=== PATIENT | female | born 1960 | race Caucasian/White ===

== ENCOUNTER 2020-11-12 07:46 | Inpatient (IN) | payer MEDICAID ==
[~2020-11-12] VITALS: Ht 157.5 cm; Wt 93.9 kg
[2020-11-12 09:34] LABS: HEMATOCRIT. 40.3 % (36.0-48.0); HEMOGLOBIN. 13.7 g/dL (12.0-16.0); MEAN CORPUSCULAR HEMOGLOBIN 30.3 pg (28.0-32.0); MEAN CORPUSCULAR VOLUME 89.3 fL (81.0-99.0); RED BLOOD CELL COUNT 4.51 mill/uL (4.2-5.4); RED CELL DISTRIBUTION WIDTH 13.5 % (11.6-14.6)
[2020-11-12 09:36] LABS: CHLORIDE 99 mEq/L (98-107)
[2020-11-12 09:43] LABS: D-DIMER 0.87 mg/L FEU (<0.50); INR 0.9; PROTHROMBIN TIME 9.9 sec (9.6-11.0)
[2020-11-12 09:44] LABS: CREATINE KINASE 375 IU/L (26-192)
[2020-11-12] MEDS ORDERED: DEXAMETHASONE 4MG/ML 1ML VIAL IV ONE ×2 (10:00→19:45)
[2020-11-12] MEDS ORDERED: PIPERACILLIN/TAZ 3.375G PREMIX 50 ML IV ONE ×2 (10:00→19:45)
[2020-11-12] MEDS ORDERED: VANCOMYCIN 1 G PREMIX 200 ML IV ONE ×2 (10:00→19:45)
[2020-11-12 12:50] LABS: BG BASE EXCESS 1.3 mmol/L (-2.0-2.0); BG CARBOXYHEMOGLOBIN 0.4 % (0.5-1.5); BG FRACTION INSPIRED OXYGEN 36; BG HCO3 ACT 25.2 mmol/L (22.0-26.0); BG METHEMOGLOBIN 0.1 % (0.0-1.5); BG OXYGEN SATURATION 88.9 % (92.0-98.5); BG OXYHEMOGLOBIN 88.5 % (94.0-97.0); BG PCO2 37.7 mmHg (35.0-45.0); BG PH 7.443 (7.350-7.450); BG PO2 50.1 mmHg (75.0-100.0); BG SAMPLE SITE RIGHT RADIAL; BG TOTAL HEMOGLOBIN 14.6 g/dL (12.0-18.0); BG VENT MODE NASAL CANNULA
[2020-11-12] MEDS ORDERED: ONDANSETRON HCL 4MG/2ML INJ IV PRN (20:00)
[2020-11-12] MEDS ORDERED: DIPHENHYDRAMINE 50MG/ML VIAL IV PRN (20:00)
[2020-11-12] MEDS ORDERED: MAGNESIUM/ALUMINUM HYDROXIDE/SIMETHICONE 30ML UDC PO PRN (20:00)
[2020-11-12] MEDS ORDERED: ALBUTEROL 6.7GM HFA INHALER ORI PRN (20:00)
[2020-11-12] MEDS ORDERED: CLONIDINE 0.1MG TABLET PO PRN (20:00)
[2020-11-12] MEDS ORDERED: ACETAMINOPHEN 325MG TABLET PO PRN (20:00)
[2020-11-12] MEDS ORDERED: ZOLPIDEM TARTRATE 5MG TABLET PO PRN (21:00)
[2020-11-12] MEDS ORDERED: CEFEPIME 1,000 MG in DEXTROSE 5% WATER 50 ML IV SCH (23:30)
[2020-11-12] MEDS: BENZONATATE 100MG CAPSULE PO PRN (23:31)
[2020-11-12] MEDS: LISINOPRIL 10MG TABLET PO SCH (23:32)
[2020-11-12] MEDS: GUAIFENESIN 600MG ER TABLET PO SCH (23:32)
[2020-11-13] MEDS: SODIUM CHLORIDE 0.9% INJ 3ML FLUSH IVF SCH ×4 (00:16→21:14)
[2020-11-13] MEDS: ATORVASTATIN CALCIUM 20MG TABLET PO SCH ×2 (00:34→21:05)
[2020-11-13] MEDS ORDERED: DEXAMETHASONE 10 MG/ML VIAL IV SCH (01:00)
[2020-11-13] MEDS: DOXYCYCLINE HYCLATE 100MG CAPSULE PO SCH ×3 (01:12→23:58)
[2020-11-13 11:36] VITALS: BP 125/62
[2020-11-13 12:00] VITALS: BP_SYST 125; BP_SYST 151; BP_DIAS 62
[2020-11-13] MEDS ORDERED: CEFEPIME 1,000 MG in DEXTROSE 5% WATER 50 ML IV SCH (13:00)
[2020-11-13] MEDS: GUAIFENESIN 600MG ER TABLET PO SCH ×2 (13:40→21:05)
[2020-11-13] MEDS: ASPIRIN 81MG EC TABLET PO SCH (13:41)
[2020-11-13] MEDS: LISINOPRIL 10MG TABLET PO SCH ×2 (13:41→21:05)
[2020-11-13] MEDS: CHOLECALCIFEROL (D3) 1000 UNIT TABLET PO SCH (13:41)
[2020-11-13] MEDS ORDERED: SIMV-43 PO (15:01)
[2020-11-13] MEDS ORDERED: LISI10TA5 PO (15:01)
[2020-11-13] MEDS ORDERED: HYDR25TA PO (15:01)
[2020-11-13] MEDS ORDERED: ASPI-1158 PO (15:01)
[2020-11-13 15:54] VITALS: BP 116/61
[2020-11-13] MEDS: ACETAMINOPHEN 325MG TABLET PO PRN (16:01)
[2020-11-13 20:00] VITALS: BP 113/60
[2020-11-13 20:16] LABS: PROTHROMBIN TIME 10.1 sec (9.6-11.0)
[2020-11-13 20:17] LABS: BASOPHILS % 0.2 % (0.0-2.0); EOSINOPHILS % 1.7 % (0.0-5.0); HEMATOCRIT. 38.2 % (36.0-48.0); HEMOGLOBIN. 13.1 g/dL (12.0-16.0); LYMPHOCYTES % 8.2 % (20.0-50.0); MEAN CORPUSCULAR HEMOGLOBIN 30.8 pg (28.0-32.0); MEAN CORPUSCULAR VOLUME 90.1 fL (81.0-99.0); MONOCYTES % 9.1 % (2.0-8.0); NEUTROPHILS % 80.8 % (40.0-76.0); RED BLOOD CELL COUNT 4.24 mill/uL (4.2-5.4); RED CELL DISTRIBUTION WIDTH 13.6 % (11.6-14.6)
[2020-11-13 20:23] LABS: CHLORIDE 100 mEq/L (98-107)
[2020-11-13 21:06] LABS: MEAN PLATELET VOLUME 8.3 fl (7.4-10.4); PLATELET 81 x1000/uL (130-400)
[2020-11-13] MEDS: ENOXAPARIN 40MG/0.4ML SYR SUBCUT SCH (21:08)
[2020-11-14] VITALS: BP 117/63
[2020-11-14 04:00] VITALS: BP 115/54
[2020-11-14] MEDS: SODIUM CHLORIDE 0.9% INJ 3ML FLUSH IVF SCH ×3 (05:21→22:19)
[2020-11-14 08:00] VITALS: BP 122/62
[2020-11-14] MEDS: CHOLECALCIFEROL (D3) 1000 UNIT TABLET PO SCH (08:25)
[2020-11-14] MEDS: ASPIRIN 81MG EC TABLET PO SCH (08:25)
[2020-11-14] MEDS: GUAIFENESIN 600MG ER TABLET PO SCH ×2 (08:25→22:17)
[2020-11-14] MEDS: LISINOPRIL 10MG TABLET PO SCH ×2 (08:25→22:18)
[2020-11-14] MEDS: ENOXAPARIN 40MG/0.4ML SYR SUBCUT SCH (08:26)
[2020-11-14] MEDS: DEXAMETHASONE 10 MG/ML VIAL IV SCH (08:26)
[2020-11-14 12:00] VITALS: BP 118/56
[2020-11-14] MEDS: DOXYCYCLINE HYCLATE 100MG CAPSULE PO SCH ×2 (12:13→22:17)
[2020-11-14] MEDS: CEFEPIME 1,000 MG in DEXTROSE 5% WATER 50 ML IV SCH (12:13)
[2020-11-14] MEDS ORDERED: DEXTROSE 50% WATER 50ML SYRINGE IV PRN (14:00)
[2020-11-14 16:00] VITALS: BP 120/66
[2020-11-14] MEDS: BLOOD SUGAR DIAGNOSTIC STRIP TEST SCH ×2 (17:10→21:00)
[2020-11-14] MEDS: ACETAMINOPHEN 325MG TABLET PO PRN (17:40)
[2020-11-14] MEDS: INSULIN LISPRO 100 UNITS/ML SUBCUT SCH ×2 (17:40→21:00)
[2020-11-14 20:00] VITALS: BP 129/53
[2020-11-14] MEDS: ATORVASTATIN CALCIUM 20MG TABLET PO SCH (22:17)
[2020-11-14] MEDS: BENZONATATE 100MG CAPSULE PO PRN (22:17)
[2020-11-15] VITALS: BP 114/63
[2020-11-15] MEDS: CEFEPIME 1,000 MG in DEXTROSE 5% WATER 50 ML IV SCH ×2 (00:44→13:03)
[2020-11-15 04:00] VITALS: BP 116/66
[2020-11-15] MEDS: SODIUM CHLORIDE 0.9% INJ 3ML FLUSH IVF SCH ×3 (06:25→21:47)
[2020-11-15] MEDS: BLOOD SUGAR DIAGNOSTIC STRIP TEST SCH ×4 (06:25→21:00)
[2020-11-15] MEDS: INSULIN LISPRO 100 UNITS/ML SUBCUT SCH ×4 (07:40→21:00)
[2020-11-15 08:00] VITALS: BP 130/67
[2020-11-15] MEDS: ENOXAPARIN 40MG/0.4ML SYR SUBCUT SCH (09:00)
[2020-11-15] MEDS: GUAIFENESIN 600MG ER TABLET PO SCH ×2 (10:30→21:49)
[2020-11-15] MEDS: ASPIRIN 81MG EC TABLET PO SCH (10:30)
[2020-11-15] MEDS: CHOLECALCIFEROL (D3) 1000 UNIT TABLET PO SCH (10:30)
[2020-11-15] MEDS: LISINOPRIL 10MG TABLET PO SCH ×2 (10:31→21:48)
[2020-11-15] MEDS: DEXAMETHASONE 10 MG/ML VIAL IV SCH (10:31)
[2020-11-15 12:00] VITALS: BP 120/68
[2020-11-15] MEDS: DOXYCYCLINE HYCLATE 100MG CAPSULE PO SCH ×2 (13:03→21:48)
[2020-11-15 16:00] VITALS: BP 126/69
[2020-11-15 20:00] VITALS: BP 157/78
[2020-11-15] MEDS: ATORVASTATIN CALCIUM 20MG TABLET PO SCH (21:48)
[2020-11-16] VITALS: BP 132/74
[2020-11-16] MEDS: CEFEPIME 1,000 MG in DEXTROSE 5% WATER 50 ML IV SCH ×2 (03:00→13:00)
[2020-11-16 04:00] VITALS: BP 120/70
[2020-11-16] MEDS: SODIUM CHLORIDE 0.9% INJ 3ML FLUSH IVF SCH ×3 (06:57→20:50)
[2020-11-16] MEDS: INSULIN LISPRO 100 UNITS/ML SUBCUT SCH ×4 (06:57→22:54)
[2020-11-16] MEDS: BLOOD SUGAR DIAGNOSTIC STRIP TEST SCH ×4 (06:57→20:50)
[2020-11-16 08:00] VITALS: BP 124/73
[2020-11-16] MEDS: LISINOPRIL 10MG TABLET PO SCH ×2 (08:18→20:49)
[2020-11-16] MEDS: GUAIFENESIN 600MG ER TABLET PO SCH ×2 (08:18→20:49)
[2020-11-16] MEDS: CHOLECALCIFEROL (D3) 1000 UNIT TABLET PO SCH (08:18)
[2020-11-16] MEDS: ASPIRIN 81MG EC TABLET PO SCH (08:18)
[2020-11-16] MEDS: DEXAMETHASONE 10 MG/ML VIAL IV SCH (08:19)
[2020-11-16 12:00] VITALS: BP 129/67
[2020-11-16] MEDS: DOXYCYCLINE HYCLATE 100MG CAPSULE PO SCH ×2 (13:00→22:52)
[2020-11-16 16:00] VITALS: BP 125/74
[2020-11-16 20:00] VITALS: BP 146/69
[2020-11-16] MEDS: ATORVASTATIN CALCIUM 20MG TABLET PO SCH (20:49)
[2020-11-16] MEDS ORDERED: POLYVINYL ALCOHOL OPHTH DROPS 15ML BOTHEYE PRN (21:00)
[2020-11-17] VITALS: BP 139/73
[2020-11-17] MEDS: CEFEPIME 1,000 MG in DEXTROSE 5% WATER 50 ML IV SCH ×2 (00:33→12:02)
[2020-11-17 04:00] VITALS: BP 128/72
[2020-11-17] MEDS: BLOOD SUGAR DIAGNOSTIC STRIP TEST SCH ×4 (05:48→21:00)
[2020-11-17] MEDS: SODIUM CHLORIDE 0.9% INJ 3ML FLUSH IVF SCH ×3 (05:48→22:17)
[2020-11-17] MEDS: INSULIN LISPRO 100 UNITS/ML SUBCUT SCH ×5 (07:36→21:00)
[2020-11-17 07:45] LABS: CHLORIDE 109 mEq/L (98-107); HEMOGLOBIN 12.8 g/dL (12.0-16.0); MEAN CORPUSCULAR HEMOGLOBIN 31.7 pg (28.0-32.0); MEAN CORPUSCULAR VOLUME 91.7 fL (81.0-99.0); PLATELET 407 x1000/uL (130-400); RED BLOOD CELL COUNT 4.03 mill/uL (4.2-5.4); RED CELL DISTRIBUTION WIDTH 13.6 % (11.6-14.6)
[2020-11-17] MEDS: LISINOPRIL 10MG TABLET PO SCH ×2 (08:26→21:00)
[2020-11-17] MEDS: GUAIFENESIN 600MG ER TABLET PO SCH ×2 (08:26→22:09)
[2020-11-17] MEDS: CHOLECALCIFEROL (D3) 1000 UNIT TABLET PO SCH (08:26)
[2020-11-17] MEDS: ASPIRIN 81MG EC TABLET PO SCH (08:26)
[2020-11-17] MEDS: DEXAMETHASONE 10 MG/ML VIAL IV SCH (08:26)
[2020-11-17 08:58] VITALS: BP 150/78
[2020-11-17 11:53] VITALS: BP 141/78
[2020-11-17] MEDS: DOXYCYCLINE HYCLATE 100MG CAPSULE PO SCH ×2 (12:02→22:17)
[2020-11-17 16:42] VITALS: BP 137/71
[2020-11-17 20:00] VITALS: BP 119/56
[2020-11-17] MEDS: ATORVASTATIN CALCIUM 20MG TABLET PO SCH (22:09)
[2020-11-18] VITALS: BP 124/78
[2020-11-18 04:00] VITALS: BP 127/67
[2020-11-18] MEDS: CEFEPIME 1,000 MG in DEXTROSE 5% WATER 50 ML IV SCH ×2 (04:38→13:56)
[2020-11-18] MEDS: BLOOD SUGAR DIAGNOSTIC STRIP TEST SCH ×4 (07:25→20:56)
[2020-11-18] MEDS: SODIUM CHLORIDE 0.9% INJ 3ML FLUSH IVF SCH ×3 (07:25→21:21)
[2020-11-18] MEDS: INSULIN LISPRO 100 UNITS/ML SUBCUT SCH ×4 (07:31→20:56)
[2020-11-18 08:00] VITALS: BP 117/73
[2020-11-18] MEDS: ASPIRIN 81MG EC TABLET PO SCH (08:09)
[2020-11-18] MEDS: CHOLECALCIFEROL (D3) 1000 UNIT TABLET PO SCH (08:09)
[2020-11-18] MEDS: ENOXAPARIN 40MG/0.4ML SYR SUBCUT SCH (08:09)
[2020-11-18] MEDS: DEXAMETHASONE 10 MG/ML VIAL IV SCH (08:09)
[2020-11-18] MEDS: GUAIFENESIN 600MG ER TABLET PO SCH ×2 (08:10→21:21)
[2020-11-18] MEDS: LISINOPRIL 10MG TABLET PO SCH ×2 (08:10→21:21)
[2020-11-18 12:00] VITALS: BP 128/73
[2020-11-18 20:00] VITALS: BP 111/66
[2020-11-18] MEDS: ATORVASTATIN CALCIUM 20MG TABLET PO SCH (21:21)
[2020-11-19] VITALS: BP 112/69
[2020-11-19 04:00] VITALS: BP 124/69
[2020-11-19] MEDS: SODIUM CHLORIDE 0.9% INJ 3ML FLUSH IVF SCH ×3 (06:00→22:00)
[2020-11-19] MEDS: BLOOD SUGAR DIAGNOSTIC STRIP TEST SCH ×4 (06:15→21:00)
[2020-11-19] MEDS: INSULIN LISPRO 100 UNITS/ML SUBCUT SCH ×4 (06:16→23:19)
[2020-11-19 08:00] VITALS: BP 119/70
[2020-11-19] MEDS: GUAIFENESIN 600MG ER TABLET PO SCH ×2 (08:30→23:13)
[2020-11-19] MEDS: CHOLECALCIFEROL (D3) 1000 UNIT TABLET PO SCH (08:31)
[2020-11-19] MEDS: ENOXAPARIN 40MG/0.4ML SYR SUBCUT SCH (08:31)
[2020-11-19] MEDS: DEXAMETHASONE 10 MG/ML VIAL IV SCH (08:31)
[2020-11-19] MEDS: LISINOPRIL 10MG TABLET PO SCH ×2 (08:31→23:13)
[2020-11-19] MEDS: ASPIRIN 81MG EC TABLET PO SCH (11:24)
[2020-11-19 12:00] VITALS: BP 115/71
[2020-11-19 16:00] VITALS: BP 124/64
[2020-11-19 20:00] VITALS: BP 116/64
[2020-11-19] MEDS: ATORVASTATIN CALCIUM 20MG TABLET PO SCH (23:13)
[2020-11-19] MEDS: ENOXAPARIN 30MG/0.3ML SYR SUBCUT SCH (23:22)
[2020-11-20] VITALS: BP 102/53
[2020-11-20] MEDS: SODIUM CHLORIDE 0.9% INJ 3ML FLUSH IVF SCH ×3 (06:23→21:46)
[2020-11-20] MEDS: BLOOD SUGAR DIAGNOSTIC STRIP TEST SCH ×4 (06:23→21:46)
[2020-11-20] MEDS: INSULIN LISPRO 100 UNITS/ML SUBCUT SCH ×4 (07:50→21:00)
[2020-11-20 08:50] VITALS: BP 112/64
[2020-11-20] MEDS: LISINOPRIL 10MG TABLET PO SCH ×2 (10:12→21:46)
[2020-11-20] MEDS: DEXAMETHASONE 10 MG/ML VIAL IV SCH (10:12)
[2020-11-20] MEDS: ASPIRIN 81MG EC TABLET PO SCH (10:13)
[2020-11-20] MEDS: CHOLECALCIFEROL (D3) 1000 UNIT TABLET PO SCH (10:13)
[2020-11-20] MEDS: GUAIFENESIN 600MG ER TABLET PO SCH ×2 (10:13→21:46)
[2020-11-20] MEDS: ENOXAPARIN 30MG/0.3ML SYR SUBCUT SCH ×2 (10:19→21:45)
[2020-11-20 12:29] VITALS: BP 126/71
[2020-11-20 15:48] VITALS: BP 114/68
[2020-11-20 20:00] VITALS: BP 156/75
[2020-11-20] MEDS: ATORVASTATIN CALCIUM 20MG TABLET PO SCH (21:45)
[2020-11-21] VITALS: BP 126/77
[2020-11-21 04:00] VITALS: BP 136/78
[2020-11-21] MEDS: SODIUM CHLORIDE 0.9% INJ 3ML FLUSH IVF SCH ×3 (06:18→23:43)
[2020-11-21] MEDS: INSULIN LISPRO 100 UNITS/ML SUBCUT SCH ×4 (07:50→21:00)
[2020-11-21 08:00] VITALS: BP 122/71
[2020-11-21] MEDS: BLOOD SUGAR DIAGNOSTIC STRIP TEST SCH ×4 (08:07→21:00)
[2020-11-21] MEDS: DEXAMETHASONE 10 MG/ML VIAL IV SCH (08:52)
[2020-11-21] MEDS: CHOLECALCIFEROL (D3) 1000 UNIT TABLET PO SCH (08:52)
[2020-11-21] MEDS: ASPIRIN 81MG EC TABLET PO SCH (08:52)
[2020-11-21] MEDS: LISINOPRIL 10MG TABLET PO SCH ×2 (08:52→23:42)
[2020-11-21] MEDS: ENOXAPARIN 30MG/0.3ML SYR SUBCUT SCH ×2 (08:53→23:41)
[2020-11-21] MEDS: GUAIFENESIN 600MG ER TABLET PO SCH ×2 (10:46→23:42)
[2020-11-21 12:00] VITALS: BP 114/70
[2020-11-21 16:00] VITALS: BP 145/75
[2020-11-21 20:00] VITALS: BP 120/85
[2020-11-21] MEDS: ATORVASTATIN CALCIUM 20MG TABLET PO SCH (23:42)
[2020-11-22] VITALS: BP 115/67
[2020-11-22 04:00] VITALS: BP 114/69
[2020-11-22] MEDS: SODIUM CHLORIDE 0.9% INJ 3ML FLUSH IVF SCH ×2 (06:27→14:00)
[2020-11-22] MEDS: BLOOD SUGAR DIAGNOSTIC STRIP TEST SCH ×2 (06:33→12:04)
[2020-11-22] MEDS: INSULIN LISPRO 100 UNITS/ML SUBCUT SCH ×2 (07:50→12:04)
[2020-11-22 08:00] VITALS: BP 113/41
[2020-11-22] MEDS: LISINOPRIL 10MG TABLET PO SCH (09:09)
[2020-11-22] MEDS: ASPIRIN 81MG EC TABLET PO SCH (09:09)
[2020-11-22] MEDS: CHOLECALCIFEROL (D3) 1000 UNIT TABLET PO SCH (09:09)
[2020-11-22] MEDS: GUAIFENESIN 600MG ER TABLET PO SCH (09:11)
[2020-11-22] MEDS: ENOXAPARIN 30MG/0.3ML SYR SUBCUT SCH (10:13)
[2020-11-22] MEDS: DEXAMETHASONE 10 MG/ML VIAL IV SCH (10:14)
[2020-11-22 12:00] VITALS: BP 119/67
[2020-11-22 14:18] VITALS: BP 119/67
== END 2020-11-22 15:38 | disposition home or self-care (01) | DRG 720 ==
LOC: ER 07:46 → EDBEDREQ 09:56 → EDBEDREQSVC 09:56 → EDBEDREQTM 09:56 → 8WST 12:19 → EDBEDREQ 12:38 → EDBEDREQTM 12:38 → CANRESERV 16:58 → ENRESERV 16:58 → 6WST 11-19 20:58
PROVIDERS: ADMIT Internal Medicine; ATTEND Internal Medicine
DX: A41.89 Other specified sepsis (principal); U07.1 COVID-19; J96.01 Acute respiratory failure with hypoxia; J12.89 Other viral pneumonia; E11.9 Type 2 diabetes mellitus without complications; E44.1 Mild protein-calorie malnutrition; E66.9 Obesity, unspecified; E78.00 Pure hypercholesterolemia, unspecified; E78.5 Hyperlipidemia, unspecified; E86.1 Hypovolemia; E87.1 Hypo-osmolality and hyponatremia; I25.10 Atherosclerotic heart disease of native coronary artery without angina pectoris; R74.01 Elevation of levels of liver transaminase levels; Z68.37 Body mass index [BMI] 37.0-37.9, adult; I10 Essential (primary) hypertension
CPT/HCPCS: 36415; 36600; 71045; 80048; 80053; 82375; 82550; 82728; 82805; 82962; 83036; 83605; 83615; 84145; 84484; 85025; 85027; 85379; 85384; 86140; 93005; 99291; J0692; J1100; J1650; J1815; J2543; J3370; J7040; J7060; U0003